=== PATIENT | female | born 1955 | race Caucasian/White ===

== ENCOUNTER → 2023-03-28 15:14 | Outpatient (REF) | payer MEDICARE, OTHER, SELFPAY | LOC: WDC 15:14 | PROVIDERS: ATTENDING PHYSICIAN Physician Assistant; REFERRING PHYSICIAN Internal Medicine Critical Care Medicine | DX: Z12.31 Encounter for screening mammogram for malignant neoplasm of breast (principal); J98.6 Disorders of diaphragm | CPT/HCPCS: 77063; 77067 ==

== ENCOUNTER → 2023-03-30 13:21 | Outpatient (REF) | payer MEDICARE, OTHER, SELFPAY | LOC: RAD 13:21 | PROVIDERS: ATTENDING PHYSICIAN Internal Medicine Critical Care Medicine; FAMILY PHYSICIAN Physician Assistant | DX: J98.6 Disorders of diaphragm (principal) | CPT/HCPCS: 71046; 76000 ==

== ENCOUNTER → 2023-05-28 08:56 | Outpatient (REF) | payer MEDICARE, OTHER, SELFPAY | LOC: HWRAD 08:56 | PROVIDERS: ATTENDING PHYSICIAN Physician Assistant | DX: M25.531 Pain in right wrist (principal) | CPT/HCPCS: 73110 ==

== ENCOUNTER → 2023-06-07 13:16 | Outpatient (REF) | payer MEDICARE, OTHER, SELFPAY | LOC: HWRAD 13:16 | PROVIDERS: ATTENDING PHYSICIAN Internal Medicine Cardiovascular Disease; FAMILY PHYSICIAN Physician Assistant | DX: E78.01 Familial hypercholesterolemia (principal) | CPT/HCPCS: 75571 ==

== ENCOUNTER → 2023-08-31 06:47 | Outpatient (REF) | payer MEDICARE, OTHER, SELFPAY | LOC: MRI 3T 06:47 | PROVIDERS: ATTENDING PHYSICIAN Orthopaedic Surgery; FAMILY PHYSICIAN Physician Assistant | DX: M25.531 Pain in right wrist (principal) | CPT/HCPCS: 73221 ==

== ENCOUNTER → 2024-03-31 14:20 | Outpatient (REF) | payer MEDICARE, OTHER, SELFPAY | LOC: HWWDC 14:20 | PROVIDERS: ATTENDING PHYSICIAN Physician Assistant; REFERRING PHYSICIAN Internal Medicine Cardiovascular Disease | DX: Z12.31 Encounter for screening mammogram for malignant neoplasm of breast (principal) | CPT/HCPCS: 77063; 77067 ==